=== PATIENT | male | born 1960 | race Caucasian/White ===

== ENCOUNTER 2016-12-28 09:21 | Inpatient (IN) | payer OTHER ==
--- NOTE | ~2016-12-28 | CN ---
Consultation Report [facility] [address] [place]. [address] NAME: PRAVEEN PEREZ : 58 STATUS : ADM IN PAT#: [id number] AGE: 56 ADM/REG DATE : 12/28/16 MR#: [id number] REPORT SERV DATE: 12/28/16 DICTATED BY: MOON ARRIAGA DATE: 12/28/16 REPORT STATUS : Draft TRANSCRIBED BY: JOSE DATE: 12/28/16 NEUROLOGY EVALUATION CODE STROKE IN THE EMERGENCY ROOM.. DATE OF CONSULTATION: 12/28/2016 LOCATION: Emergency room, bed 1. HISTORY OF PRESENT ILLNESS: This is a 56-year-old white male with known history of hypertension, hyperlipidemia, "borderline" diabetes mellitus, with past history of possible cardiac arrhythmias, and positive history of myocardial infarction, stent placement a few years ago, who presented to the emergency room within 12 hours onset of symptoms of neurological deficit. The patient's stated that the patient woke up as usual, proceeded to the basement of the house for the treadmill exercise which lasted approximately 45 minutes. The patient came to the kitchen and informed his that he felt disoriented and could not remember where he was. The patient was having some difficulty with his balance initially and some difficulty following two-step commands. As per , the patient remembered her name and his name, however did not know his age. His blood pressure on admission was reported to be 205 and repeat blood pressure 177 systolic, 90 diastolic, heart rate was approximately 70 beats per minute. His neurological evaluation was performed in the emergency room. NIH Stroke Scale total score of 2. PAST MEDICAL HISTORY: Hypertension, hyperlipidemia?; diabetes mellitus, recent?; two year history of ND with stent placement; as per patient's , the patient had recent stress test with his welder journeyman whose name the patient's or the patient did not remember, affiliated with [facility]. ALLERGIES: NO KNOWN ALLERGIES. SOCIAL HISTORY: The patient does not smoke or drink alcohol. 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 The patient is and has two children, who are healthy. FAMILY HISTORY: Strongly positive for history of coronary artery disease and heart attacks. REVIEW OF SYSTEMS: The patient had lost approximately 70 pounds in the last year and a half, exercising daily, and watching his diet. The patient denied chest pain or shortness of breath. The patient's stated that he has not had any recent complaints of headaches, dizziness, difficulty with his vision, chewing, swallowing, or with his speech. The patient did not have weakness or numbness involving his face or extremities. There is no history of recent head trauma. PHYSICAL EXAMINATION: VITAL SIGNS: Blood pressure 156/76, pulse was 74, respirations 12, and temperature afebrile. HEAD AND NECK: Showed him to be normocephalic. There was no evidence of trauma. Consultation Report [place] [id number] [facility] [place]. [address] NAME: PRAVEEN PEREZ : 58 STATUS : ADM IN PAT#: [id number] AGE: 56 ADM/REG DATE : 12/28/16 MR#: [id number] REPORT SERV DATE: 12/28/16 DICTATED BY: MOON ARRIAGA DATE: 12/28/16 REPORT STATUS : Draft TRANSCRIBED BY: JOSE DATE: 12/28/16 Auscultation of head and neck showed no evidence of bruits. Thyroid gland was nonpalpable. There is no cervical lymphadenopathy. No JVD. CHEST: Symmetrical. LUNGS: Clear to auscultation. HEART: Regular S1 and S2. No S3 or S4. Gallops were noted. ABDOMEN: Soft and nontender. No organomegaly detected. Bowel sounds were present. EXTREMITIES: Showed no clubbing or cyanosis. There was no peripheral edema. Peripheral pulses were palpable and strong. SKIN: Clear. No ecchymosis, petechiae, hyper or hypopigmented lesions. NEUROLOGIC: The patient was alert and oriented to self only, partially oriented to time, not oriented to place, had difficulty following two-step commands, no showing signs of aphasia or dysarthria. Cranial nerve examination 2 through 12: Visual chavez on confrontation were intact. Funduscopic exam showed no evidence of papilledema, hemorrhages, or exudates. Extraocular movements were full. There was no nystagmus. No limitation of upward or downward gaze was noted. No facial asymmetry was present. The rest of cranial nerve examination was normal. Motor exam: Muscle, bulk, and tone were normal. Strength was 5/5 throughout. Deep tendon reflexes were 2/2, except absent ankle jerks. Sensory exam showed stocking distribution, decreased sensation distally in both legs. Two-point discrimination was mildly impaired on the right. Cerebellar exam: Yrjiba-kl-yrnt, heel-to- kincaid, and rapid alternating movements, the patient had some difficulty with, otherwise it was intact. The patient as per had no difficulty walking or getting to his car. Exclusion and inclusion criteria were discussed with the patient's and side effects of the tPA were discussed with the , the patient is having signs of active stroke in evolution. The patient meets the criteria for tPA administration and has no contraindication. The after the explanation requested for the patient to have the tPA and likewise the patient consented to it. The patient was given tPA with no side effects noted, the post tPA orders were written. The patient will be admitted to MICU. Follow post tPA stroke orders. KALYN/JOSE Moon Arriaga MD / [id number] CC: Sergio Fatima M.D.
--- NOTE | ~2016-12-28 | HP ---
History And Physical [place] [id number] [place]. [address] NAME: PRAVEEN PEREZ : 58 STATUS : ADM IN [facility]#: [id number] AGE: 56 ADM/REG DATE : 12/28/16 MR#: [id number] REPORT SERV DATE: 12/28/16 DICTATED BY: JAVON SWAN DATE: 12/28/16 REPORT STATUS : Draft TRANSCRIBED BY: MODKillian DATE: 12/28/16 DATE OF ADMISSION: 12/28/2016 HISTORY OF PRESENT ILLNESS: This is a 56-year-old gentleman, who was admitted through the emergency room after his noticed that he was not able to remember the season or what happened at all with him this morning. He was actually driven to the ER by his and upon arrival to the emergency room had a blood pressure of 203/95, pulse of 78, respiratory rate is 14, O2 saturation of 97%. He was evaluated by Neurology and thought suitable for tPA protocol. He had a CT scan of the head that was negative for any bleed or stroke. He currently is in the ICU as per protocol for 24 hour observation. ALLERGIES: THE PATIENT HAS NO KNOWN DRUG ALLERGIES. MEDICATIONS: Current medications at home are aspirin 325 mg daily, Lopressor 50 mg a day, Crestor 10 mg at bedside and then apparently he also takes Benadryl, but has not taken that in a long time. PAST MEDICAL HISTORY: Significant for hypertension, hyperlipidemia, coronary artery disease, status post stent placement and sees Dr. Herrmann, Cardiology at [place]. He recently had a stress test, results of which are unknown. SOCIAL HISTORY: He is . He has one child. He does not smoke. Has occasional alcoholic beverage. He is a remote computer terminal operator. FAMILY HISTORY: Significant for coronary artery disease in early age in his mother. His father had laryngeal cancer and was a heavy smoker. He is an only child. REVIEW OF SYSTEMS: A 12-point review of systems was done and that really is as per history of present illness. The patient has no complaints of visual loss, syncope, heart palpitations, chest pain, nausea, vomiting, diarrhea, fevers, no recent travel to overseas. So, the remainder of a 12 point review of systems is unremarkable. PHYSICAL EXAMINATION: VITAL SIGNS: Currently, his heart rate is 65, he is afebrile, O2 saturation on room air is 97%, blood pressure is 158/83, respiratory rate is 12 to 14 breaths per minute. SKIN: Warm and dry. HEENT: Head is atraumatic, normocephalic. Pupils are equal, round, and reactive to light and accommodation. Extraocular eye movements are intact. Sclerae anicteric. Conjunctivae are pink. Nasal mucosa is within normal limits. Oral mucosa is moist. Tongue is midline. NECK: Supple without JVD, lymphadenopathy, or thyromegaly. No carotid bruits are appreciated over the carotid arteries. LUNGS: Clear. CARDIAC: Reveals a regular rate and rhythm with normal chest excursion. There are no significant murmurs heard. ABDOMEN: Soft, nondistended. No organosplenomegaly is appreciated. History And Physical [address] [address] NAME: PRAVEEN PEREZ : 58 STATUS : ADM IN [facility]#: [id number] AGE: 56 ADM/REG DATE : 12/28/16 MR#: [id number] REPORT SERV DATE: 12/28/16 DICTATED BY: JAVON SWAN DATE: 12/28/16 REPORT STATUS : Draft TRANSCRIBED BY: JOSE DATE: 12/28/16 RECTAL AND GENITAL: Deferred. EXTREMITIES: Without cyanosis, clubbing, or edema. Pulses are palpable and symmetrical. NEUROLOGIC: Cranial nerves 2 through 12 are grossly intact. Motor and sensory are intact. According to the , the patient seems to be remembering more, but he still has no idea how he got to the hospital or what happened this morning. He can remember things remotely, but nothing recent. LABORATORY DATA: His white cell count is 6.7, hemoglobin 15, hematocrit 42, platelet count 223,000. PTT is 26, INR is 1.0. Chest x-ray is clear without any adenopathy. D-dimer is 0.28. Sodium 143, potassium 3.8, chloride 106, bicarb 26, BUN 15, creatinine 1.03. Cholesterol is 158, HDL 46, LDL 74, triglycerides are 193. Troponin is negative. B12, folate, and TSH are all within normal limits. EKG shows frequent premature ventricular contraction, nonspecific ST changes, and sinus rhythm. ASSESSMENT AND PLAN: This is a 56-year-old patient, who presents with what appears to be global amnesia of sudden onset, etiology of which is not entirely clear and has been treated with tPA. He is to remain in the intensive care unit for 24 hour observation. His current medications that he has at home will be continued. Echocardiogram is completed and results are pending. He may need a loop recorder possibly as an outpatient to see if there are any rhythm abnormalities. /MODL Javon Swan M.D. / [id number] CC: Sergio Fatima M.D.
--- NOTE | ~2016-12-28 | DS ---
Discharge Summary [facility] [address] [place]. [address] NAME: PRAVEEN PEREZ : 58 STATUS : DIS IN PAT#: [id number] AGE: 56 ADM/REG DATE : 12/28/16 MR#: [id number] REPORT SERV DATE: 12/31/16 DICTATED BY: PRAVEEN BEAVER ASPEN DATE: 12/30/16 REPORT STATUS : Draft TRANSCRIBED BY: MODL DATE: 12/30/16 ADMISSION DATE: 12/28/2016 DISCHARGE DATE: 12/30/2016 The patient is a 56-year-old male with a history of hypertension, who was brought to the emergency room by his with a complaint of global amnesia. For further details please refer to H and P dictated by Dr. Swan on 12/28/2016. HOSPITAL COURSE: Upon presenting to the emergency room, initial evaluation was concerning for a TIA like picture. Neurology was subsequently consulted. Please refer to Neurology note dictated on 12/28/2016. The patient was subsequently administered tPA and admitted per protocol to the ICU for observation. The patient has remained hemodynamically stable throughout his hospitalization. He has been followed by Neurology. Upon re-evaluation today, the patient is hemodynamically steady and ready for discharge. His hypertension was also controlled while in-house. The patient was already on aspirin and Plavix was added to his medication. His ASCVD score is 6.2, in which per guideline medium intensity statin is indicated. The patient is currently on Rosuvastatin 10 mg p.o. daily, we will continue that medication. Given conclusion of workup, given clearance by Neurology, the patient will be discharged home today. DISCHARGE MEDICATIONS: 1. Plavix 75 mg p.o. daily. 2. Aspirin 325 mg p.o. daily. 3. Metoprolol 50 mg p.o. twice a day. 4. Rosuvastatin 10 mg p.o. daily. 5. Iron 27 mg p.o. daily. 6. Vitamin C 500 mg p.o. daily. 7. Melatonin 10 mg p.o. at bedtime. 8. Vitamin D 1000 units p.o. daily. DISCHARGE PHYSICAL EXAMINATION: VITAL SIGNS: Blood pressure 124/57 with a pulse of 47, respirations 18, O2 saturation 100% on room air. GENERAL: The patient sitting in chair, in no acute distress. HEENT: Normocephalic and atraumatic. Eyes; pupils equal, round, and reactive to light and accommodation. Extraocular motors intact. Moist oral mucosa. NECK: Trachea midline and symmetric. No JVD noted. No lymphadenopathy present. CHEST: Nontender to palpation. No scars noted. CARDIOVASCULAR: Regular rate and rhythm. S1, S2. No murmurs, rubs, or gallops. LUNGS: Clear to auscultation bilaterally. No added breath sounds present. ABDOMEN: Positive bowel sounds. Nontender. Nondistended. No masses palpated on deep palpation. EXTREMITIES: No cyanosis, no clubbing, no edema. NEURO: Alert and oriented x3. No focal deficits appreciated. PROCEDURES: Brain CT stroke protocol on 12/28/2016. Discharge Summary [address] [address] NAME: PRAVEEN PEREZ : 58 STATUS : DIS IN PAT#: [id number] AGE: 56 ADM/REG DATE : 12/28/16 MR#: [id number] REPORT SERV DATE: 12/31/16 DICTATED BY: PRAVEEN BEAVER DATE: 12/30/16 REPORT STATUS : Draft TRANSCRIBED BY: JOSE DATE: 12/30/16 CTA neck and brain stroke protocol on 12/28/2016. Echo: Transthoracic echocardiogram on 12/28/2016. MRI brain without contrast on 12/28/2016. DISPOSITION: The patient will be discharged home to follow up with primary care physician. ACTIVITY: As tolerated. DIET: Regular. Greater than 30 minutes were spent planning discharge, discussion of case with nursing staff, discussion of case with neurologist, chart review, dictation of note, medication reconciliation, writing prescriptions. SABA/JOSE Praveen Beaver MD / [id number] CC: Sergio Fatima M.D.
[2016-12-28 09:50] LABS: BASOPHILS 0.6 %; BASOPHILS ABSOLUTE 0.04 10/3/uL (0.0-0.16); EOSINOPHILS 3.7 %; EOSINOPHILS ABSOLUTE 0.25 10/3/uL (0.0-0.53); HEMATOCRIT 42.8 % (40.0-51.0); HEMOGLOBIN 15.2 g/dL (13.6-17.8); LYMPHOCYTES 35.1 %; LYMPHOCYTES ABSOLUTE 2.36 10/3/uL (0.67-4.30); MEAN CORPUS HGB CONC 35.5 g/dL (32.0-36.0); MEAN CORPUSCULAR VOLUME 87.2 fL (80-100); MEAN PLATELET VOLUME 9.7 fL (9.2-13.0); MONOCYTES 7.9 %; MONOCYTES ABSOLUTE 0.53 10/3/uL (0.21-1.20); NEUTROPHILS 52.7 %; NEUTROPHILS ABSOLUTE 3.54 10/3/uL (2.02-8.40); PLATELET COUNT 223 10/3/uL (150-400); RBC DISTRIBUTION WIDTH 11.9 % (12.0-16.0); RED CELL COUNT 4.91 10/6/uL (4.7-6.1); WHITE BLOOD CELLS 6.7 10/3/uL (4.5-10.5)
[2016-12-28 09:52] LABS: MANUAL DIFF NO %
[2016-12-28 09:59] LABS: PARTIAL THROMBO TIME 26.3 SEC (22.5-37.2); PROTIME (NOT ORD) 13.3 SEC (12.0-14.5)
[2016-12-28 10:07] LABS: A/G RATIO 1.4 (0.7-1.9); ALBUMIN 4.4 G/DL (3.5-5.0); ALKALINE PHOSPHATASE 63 U/L (45-117); BUN (BLOOD UREA NITROGEN) 15 MG/DL (6-23); CALCIUM, SERUM 9.1 MG/DL (8.5-10.4); CHLORIDE, SERUM 106 MMOL/L (96-112); CO2 (CARBON DIOXIDE) 26 MMOL/L (24-34); CREATININE 1.03 MG/DL (0.70-1.30); GFR AFRICAN AMERICAN 93 ML/MIN (>=60); GFR NON AFRICAN AMERICAN 80 ML/MIN (>=60); GLOBULIN 3.2 G/DL (2.5-4.1); GLUCOSE, SERUM 93 MG/DL (60-99); POTASSIUM, SERUM 3.8 MMOL/L (3.5-5.3); SGOT(AST) 13 U/L (5-40); SGPT(ALT) 34 U/L (5-65); SODIUM, SERUM 143 MMOL/L (135-148); TOTAL BILIRUBIN 0.6 MG/DL (0-1.2); TOTAL PROTEIN 7.6 G/DL (6.0-8.5); TROPONIN I <0.02 NG/ML (<0.05)
[2016-12-28] MEDS ORDERED: CRESTOR10 PO (10:35)
[2016-12-28] MEDS ORDERED: ASSORTED VITAMINS PO (10:36)
[2016-12-28] MEDS ORDERED: ASABAYER PO (10:36)
[2016-12-28] MEDS ORDERED: LOP50 PO (10:36)
[2016-12-28 13:35] LABS: CHOL/HDL RATIO(NOT ORDER) 3.4 (0-5); CHOLESTEROL 158 MG/DL (< 200); CPK 108 U/L (0-200); FREE T4 1.04 NG/DL (0.76-1.46); HDL CHOLESTEROL 46 MG/DL (> 39); LDL CHOLESTEROL 74 MG/DL (< 130); NON-HDL CHOLESTEROL 112 MG/DL (< 160); PHOSPHORUS, SERUM 2.7 MG/DL (2.5-4.5); TRIGLYCERIDE 193 MG/DL (< 150)
[2016-12-28 13:36] LABS: CK-MB 0.8 NG/ML; FOLATE 51.7 NG/ML (>5.2)
[2016-12-28] MEDS ORDERED: VITC500 PO (17:01)
[2016-12-28] MEDS ORDERED: IRON 27MG PO (17:01)
[2016-12-28] MEDS ORDERED: SUPER B COMP PO (17:01)
[2016-12-28] MEDS ORDERED: MELATONIN10 M2 PO (17:01)
[2016-12-28] MEDS ORDERED: VITAMIN D31000 UNIT PO (17:02)
[2016-12-28] MEDS ORDERED: FISH OIL 360MG PO (17:02)
[2016-12-28 20:53] LABS: CPK 1352 U/L (0-200); TROPONIN I <0.02 NG/ML (<0.05)
[2016-12-28 20:54] LABS: CK-MB 1.1 NG/ML
[2016-12-29 04:58] LABS: TROPONIN I <0.02 NG/ML (<0.05)
[2016-12-29 05:05] LABS: CK-MB < 0.5 NG/ML; CPK 74 U/L (0-200)
[2016-12-29 13:20] LABS: CK-MB 0.6 NG/ML; CPK 82 U/L (0-200); TROPONIN I <0.02 NG/ML (<0.05)
[2016-12-30 06:59] LABS: BASOPHILS 0.5 %; BASOPHILS ABSOLUTE 0.03 10/3/uL (0.0-0.16); EOSINOPHILS 5.3 %; EOSINOPHILS ABSOLUTE 0.33 10/3/uL (0.0-0.53); HEMATOCRIT 41.3 % (40.0-51.0); IMMATURE GRANULOCYTES 0.2 %; IMMATURE GRANULOCYTES ABSOLUTE 0.01 10/3/uL (0.0-0.11); LYMPHOCYTES 34.3 %; LYMPHOCYTES ABSOLUTE 2.13 10/3/uL (0.67-4.30); MEAN CORPUS HGB CONC 36.3 g/dL (32.0-36.0); MEAN CORPUSCULAR HEMOGLOB 31.8 pg (26.0-34.0); MEAN CORPUSCULAR VOLUME 87.7 fL (80-100); MEAN PLATELET VOLUME 9.8 fL (9.2-13.0); MONOCYTES ABSOLUTE 0.62 10/3/uL (0.21-1.20); NEUTROPHILS 49.7 %; NEUTROPHILS ABSOLUTE 3.09 10/3/uL (2.02-8.40); PLATELET COUNT 211 10/3/uL (150-400); RBC DISTRIBUTION WIDTH 11.6 % (12.0-16.0); RED CELL COUNT 4.71 10/6/uL (4.7-6.1); WHITE BLOOD CELLS 6.2 10/3/uL (4.5-10.5)
[2016-12-30 07:01] LABS: MANUAL DIFF NO %
[2016-12-30 07:09] LABS: CALCIUM, SERUM 8.5 MG/DL (8.5-10.4); CHLORIDE, SERUM 107 MMOL/L (96-112); CO2 (CARBON DIOXIDE) 22 MMOL/L (24-34); CREATININE 0.96 MG/DL (0.70-1.30); GFR AFRICAN AMERICAN 101 ML/MIN (>=60); GFR NON AFRICAN AMERICAN 87 ML/MIN (>=60); GLUCOSE, SERUM 97 MG/DL (60-99); PHOSPHORUS, SERUM 3.3 MG/DL (2.5-4.5); POTASSIUM, SERUM 4.1 MMOL/L (3.5-5.3); SODIUM, SERUM 140 MMOL/L (135-148)
[2016-12-30 07:11] LABS: BUN (BLOOD UREA NITROGEN) 20 MG/DL (6-23)
[2016-12-30] MEDS ORDERED: PLAVIX PO (18:01)
== END 2016-12-30 18:38 | disposition home or self-care (01) | DRG 69 ==
LOC: ER 09:21 → CCU 11:30 → 7NO 12-30 08:53
PROVIDERS: Emergency Medicine; Internal Medicine Pulmonary Disease
DX: G45.9 Transient cerebral ischemic attack, unspecified (principal); I10 Essential (primary) hypertension; E78.5 Hyperlipidemia, unspecified; I25.2 Old myocardial infarction; Z95.5 Presence of coronary angioplasty implant and graft; Z82.49 Family history of ischemic heart disease and other diseases of the circulatory system
CPT/HCPCS: 36415; 70450; 70496; 70498; 70551; 71010; 80048; 80053; 80061; 82550; 82553; 82607; 82746; 83036; 83735; 84100; 84439; 84443; 84484; 85025; 85379; 85610; 85730; 86850; 86900; 86901; 87641; 93005; 93306; 96365; 96375; 99291; A9270-GY; J2997; Q9967